=== PATIENT | female | born 1955 | race Caucasian/White ===

== ENCOUNTER 2024-09-01 10:50 | Outpatient (CLI) | payer MEDICARE, SELFPAY ==
[2024-09-01 11:09] LABS: Basophils # 0.1 K/mm3 (0-0.2); Basophils % 0.7 % (0.1-2.0); Eosinophils # 0.1 K/mm3 (0.0-0.4); Eosinophils % 0.8 % (0.1-12.0); Hematocrit 44.6 % (37.0-47.0); Hemoglobin 14.7 g/dL (12.2-16.2); Lymphocytes # 2.8 K/mm3 (0.7-4.5); Lymphocytes % 38.8 % (10-50); Mean Corpuscular Volume 103.2 fl (81-99); Mean Platelet Volume 9.2 fl (7.4-10.4); Monocytes # 0.6 K/mm3 (0.1-1.0); Monocytes % 7.9 % (1.7-9.3); Neutrophils # 3.7 K/mm3 (1.8-7.8); Neutrophils % 51.4 % (37.0-80.0); Platelet Count 255 K/mm3 (142-424); Red Blood Count 4.32 M/mm3 (4.20-5.40); Red Cell Distribution Width 12.1 % (11.5-17.5); White Blood Count 7.1 K/mm3 (4.8-10.8)
[2024-09-01 11:33] LABS: Albumin Level 4.6 g/dl (3.5-5.0); Chloride 105 mmol/L (98-107); Potassium 4.7 mmoL/L (3.5-5.1); Sodium 135 mmol/L (136-145)
[2024-09-01 11:36] LABS: Alanine Aminotransferase 23 U/L (12-78); Alkaline Phosphatase 73 U/L (38-126); Anion Gap 9.7 mEq/L (5-15); Aspartate Amino Transferase 32 U/L (14-36); Bilirubin,Total 0.5 mg/dl (0.2-1.3); Blood Urea Nitrogen 19 mg/dl (7-17); Calcium 9.9 mg/dl (8.4-10.2); Carbon Dioxide 25 mmol/L (22.0-30.0); Estimated Glomerular Filt Rate 99 ml/min (>60); GFR (African American) 120 ML/MIN (>60); Globulin 2.3 g/dL (1.3-3.2); Glucose 106 mg/dl (74-100); Iron 131 ug/dL (37-170); Total Protein,Serum 6.9 g/dl (6.3-8.2)
[2024-09-01 11:49] LABS: Total Iron Binding Capacity 386 ug/dL (265-497)
[2024-09-01 12:11] LABS: Erythrocyte Sedimentation Rate 13 mm/hr (0-30)
[2024-09-01 12:14] LABS: Ferritin 15.4 ng/ml (11.1-264)
[2024-09-01 13:02] LABS: C-Reactive Protein < 0.3 mg/L (0-4)
[2024-09-01 13:46] LABS: Vitamin B12 349 pg/mL (239-931)
[2024-09-01 16:03] LABS: 25-OH Vitamin D, Total 49.1 ng/mL (30-100)
[2024-09-03 19:27] LABS: QuantiFERON-TB Gold Plus Negative (Negative)
== END 2024-09-01 23:59 | disposition home or self-care (01) ==
LOC: LAB 10:53
PROVIDERS: PCP Internal Medicine Adolescent Medicine; Visit Provider Nurse Practitioner Family
DX: K51.90 Ulcerative colitis, unspecified, without complications (principal)
CPT/HCPCS: 36415; 80053; 82306; 82607; 82728; 83540; 83550; 85025; 85651; 86140; 86480